=== PATIENT | female | born 1950 | race African-American/Black ===

== ENCOUNTER 2018-02-07 15:53 | Inpatient (IN) | payer MEDICARE ==
[~2018-02-07] VITALS: Ht 170.2 cm; Wt 96.7 kg
--- NOTE | ~2018-02-07 | MORECARE ---
CASE MANAGEMENT DISCHARGE SUMMARY PATIENT: RAN ADEN UNIT: [id number] ADM DATE: 02/07/18 AGE: 67 : 50 SEX: F ROOM/BED: D.2224 AUTHOR: TINO,DOC PHYSICIAN: REFERRING PHYSICIAN: PETER MCNAIR MD DATE OF SERVICE: 02/22/18 Discharge Plan Patient Name: RAN ADEN Facility: [facility]:[place] : 1950 Planned Disposition: Home Anticipated Discharge Date: Discharge Date: Expected LOS: Initial Reviewer: [email or web address] Initial Review Date: 02/19/2018 Generated: 02/22/18 3:57 pm Comments DCP- Discharge Planning Updated by [email or web address]: Erin Alonzo on 02/22/18 1:[address] CM met with patient and her daughter Yasbel Boland to discuss discharge planning. Patient and daughter states they would like her to go to [facility] in [place] for Skilled therapy. Prior to hospitalization patient was living independently with her . I called and spoke with Angela and she gave me another number to speak with Roseline Sheffield (intake) at [facility]. I left a message for Roseline to return my call and faxed clinical to [phone]. CM will continue to follow and assist with discharge planning/needs. 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 Patient is still currently on Vent but alert. Henry stated that prior to admission patient lived with her in [place]. She stated that she has been in and out of hospital lately with her liver problems. She is uncertain of disposition at this time. Denies any discharge needs currently. CM will continue to follow and assist as needed with discharge planning / needs. Drawer In Dobby Loom: Perla Finch DCP- Discharge Planning Updated by [email or web address]: Perla Finch on 02/15/18 6:[address] LATE ENTRY 02-15-18 CM HAS ATTEMPTED TO SPEAK WITH PATIENT MULTIPLE TIMES REGARDING DISCHARGE PLANNING PATIENT IS CURRENTLY ON VENT/ SEDATED. NO FAMILY AT BEDSIDE. CM WILL CONTINUE TO FOLLOW AND ASSIST NEEDED WITH DISCHRGE PLANNING /NEEDS DCPIA - Discharge Planning Initial Assessment Updated by [email or web address]: Perla Finch on 02/19/18 7:14 pm * Is the patient Alert and Oriented? Yes * How many steps to enter\exit or inside your home? * PCP DR. Garrison Salazar [place] * Pharmacy [facility] * Preadmission Environment Home with Family * ADLs Independent * Equipment None * List name and contact numbers for known caregivers / representatives who currently or will assist patient after discharge: Henry Boland -daughter- [phone] * Verbal permission to speak to the caregivers and representatives has been obtained from the patient. N/A * Community resources currently utilized None * Additional services required to return to the preadmission environment? No * Can the patient safely return to the preadmission environment? Yes * Has this patient been hospitalized within the prior 30 days at any hospital? No Last DP export: 02/22/18 1:47 Patient Name: RAN ADEN Page [id number] at 1457 All edits/amendments must be made on the electronic document DICTATION DATE: 02/22/181456 BEAN VINER: [email or web address] 02/22/181456 RPT#: [id number] DC DATE: STATUS: ADM IN [facility] [address] [place] [address] END OF REPORT
--- NOTE | ~2018-02-07 | HEMODYNAMI ---
PATIENT:RAN ADEN MEDICAL RECORD: [id number] : 50 LOCATION:[place] [address] ADMISSION DATE: 02/07/18 Generatedon:02/08/201815:49 Patient name: RAN ADEN Patient #: [id number] SSN: DO B: 1950 Date of study: 02/08/2018 Page: Of Hemodynamic Procedure Report Patient Data Patient Demographics Procedure consent was obtained First Name: RAN Gender: Female Last Name: KEIKO : 1950 Patient #: [id number] Age: 67 year(s) Race: Black Additional ID: [id number] Contact details [address]: [address] [place] [address] State: [place] City: [place] Zip code: [address] Past Medical History Allergies: No known allergies Admission Admission Data Admission Date: 02/07/2018 Admission Time: 22:19 Room #: [facility] Height (in.): 67 BSA: 1.89 (m2) Height (cm.): 170.18 BMI: 26.78 (kg/m2) Weight (lbs.): 171 Weight (kg.): 77.56 Procedure Procedure Types Cath Procedure Peripheral Cath Diagnostic Procedure Video Network Engineer Peripheral Procedures Abd/Extremity Visceral/Mesenteric Mesenteric Arteriogram (Abd Artery) Liver TIPSS Procedure Description Procedure Date Procedure Date: 02/08/2018 Procedure Start Time: 10:46 Procedure Staff Name Function Fran Rosas MD Performing Physician Rhonda Mcbride RT Occupational Physician Kylee Duran RN Nurse Paulino Cui RT Scrub Procedure Data Cath Procedure Fluoroscopy Diagnostic fluoroscopy Total fluoroscopy Time: 55 time: 55 min min Diagnostic fluoroscopy Total fluoroscopy dose: dose: 5573 mGy 5573 mGy Contrast Material Contrast Material Type Amount (ml) Isovue 300 260 Diagnostic catheters Device Type Used For End Catheter Placement Merit Impress COBRA 2 5Fr 65CM catheter ([id number]) DIAGNOSTIC MPA-2 5Fr catheter ([id number]) Merit UHF Pigtail VESSEL SIZING 5Fr 65CM catheter ([id number]) Procedure Medications Medication Administration Route Dosage Heparin Flush Bag added to field 3 bags (1000units/500ml NS) Lidocaine 1% added to field 20 Hemodynamics Rest BSA: 1.89 (m2) O2 Consumption: Estimated: 196.78 (ml/min) O2 Consumption indexed : Estimated:104.12 (ml/min/m) Heart Rate: 100 (bpm) Pressure Samples Time Site Value (mmHg) Purpose Heart Use Rate(bpm) 14:23 Portal (27) Snapshot 94 14:23 Portal (27) Snapshot 95 14:23 Portal (28) Snapshot 94 14:29 RA 15/14(13) Snapshot 95 14:51 Portal (24) Snapshot 98 14:53 RA 16/ (15) Snapshot 100 14:53 RA (15) Snapshot 104 14:54 RA (13) Snapshot 98 Snapshots Pre Cath Intra NCS Post Cath Vital Signs Time Heart Resp SPO2 etCO2 NIBP (mmHg) Rhythm Pain Sedation Rate (ipm) (%) (mmHg) Status Level (bpm) 9:59:06 99 6 100 0 103/74(92) NSR 0 (11) 10(A) , No pain 10:00:42 99 5 100 0 109/78(89) NSR 0 (11) 10(A) , No pain 10:05:37 105 0 0 129/92(109) NSR 0 (11) 10(A) , No pain 10:09:57 105 10 100 0 112/79(98) NSR 0 (11) 10(A) , No pain 10:14:13 107 56 100 0 124/79(107) NSR 0 (11) 10(A) , No pain 10:18:33 108 16 100 0 116/76(97) NSR 0 (11) 10(A) , No pain 10:19:55 108 17 100 0 113/74(95) NSR 0 (11) 10(A) , No pain 10:21:15 107 16 100 0 106/69(85) NSR 0 (11) 10(A) , No pain 10:22:31 106 15 100 0 105/72(88) NSR 0 (11) 10(A) , No pain 10:23:46 105 31 100 0 105/68(89) NSR 0 (11) 10(A) , No pain 10:25:04 105 18 100 0 104/68(83) NSR 0 (11) 10(A) , No pain 10:26:20 105 32 100 0 104/72(82) NSR 0 (11) 10(A) , No pain 10:27:36 104 29 100 0 98/68(86) NSR 0 (11) 10(A) , No pain 10:28:50 104 31 100 0 107/73(88) NSR 0 (11) 10(A) , No pain 10:30:07 104 32 100 0 104/70(80) NSR 0 (11) 10(A) , No pain 10:31:23 103 28 100 0 103/69(84) NSR 0 (11) 10(A) , No pain 10:32:37 103 12 100 0 104/73(83) NSR 0 (11) 10(A) , No pain 10:33:53 103 14 100 0 105/69(89) NSR 0 (11) 10(A) , No pain 10:35:08 102 100 0 103/72(87) NSR 0 (11) 10(A) , No pain 10:36:24 102 0 100 0 103/70(86) NSR 0 (11) 10(A) , No pain 10:37:40 102 14 100 0 107/72(92) NSR 0 (11) 10(A) , No pain 10:38:58 102 100 0 104/69(81) NSR 0 (11) 10(A) , No pain 10:40:14 101 100 0 108/73(90) NSR 0 (11) 10(A) , No pain 10:41:32 102 6 100 0 107/71(90) NSR 0 (11) 10(A) , No pain 10:42:47 102 100 0 104/72(88) NSR 0 (11) 10(A) , No pain 10:44:05 101 12 100 0 102/68(81) NSR 0 (11) 10(A) , No pain 10:45:21 101 9 100 0 98/66(81) NSR 0 (11) 10(A) , No pain 10:46:37 100 0 100 0 103/67(87) NSR 0 (11) 10(A) , No pain 10:47:52 100 10 100 0 100/68(82) NSR 0 (11) 10(A) , No pain 10:49:08 100 0 100 0 99/65(84) NSR 0 (11) 10(A) , No pain 10:50:24 100 100 0 99/67(80) NSR 0 (11) 10(A) , No pain 10:51:40 100 8 100 0 98/64(80) NSR 0 (11) 10(A) , No pain 10:52:56 100 11 100 0 99/65(81) NSR 0 (11) 10(A) , No pain 10:54:11 100 11 100 0 99/66(79) NSR 0 (11) 10(A) , No pain 10:55:27 100 11 100 0 99/66(81) NSR 0 (11) 10(A) , No pain 10:56:43 100 11 100 0 96/65(77) NSR 0 (11) 10(A) , No pain 10:57:57 100 12 100 0 101/67(85) NSR 0 () 10(A) , No pain 10:59:13 100 12 100 0 101/66(81) NSR 0 (11) 10(A) , No pain 11:00:26 99 11 100 0 101/68(79) NSR 0 (11) 10(A) , No pain 11:01:44 100 11 100 0 98/63(80) NSR 0 (11) 10(A) , No pain 11:03:00 100 11 100 0 98/66(80) NSR 0 (11) 10(A) , No pain 11:04:16 100 12 100 0 99/64(82) NSR 0 (11) 10(A) , No pain 11:05:31 100 12 100 0 99/64(75) NSR 0 (11) 10(A) , No pain 11:06:45 99 7 100 0 98/67(81) NSR 0 (11) 10(A) , No pain 11:08:01 99 11 100 0 95/64(78) NSR 0 (11) 10(A) , No pain 11:09:15 99 10 100 0 97/66(80) NSR 0 (11) 10(A) , No pain 11:10:28 99 3 100 0 98/65(80) NSR 0 (11) 10(A) , No pain 11:11:44 100 6 100 0 96/64(77) NSR 0 (11) 10(A) , No pain 11:12:58 100 100 0 99/68(78) NSR 0 (11) 10(A) , No pain 11:14:14 99 100 0 96/61(75) NSR 0 (11) 10(A) , No pain 11:15:27 99 100 0 97/66(76) NSR 0 (11) 10(A) , No pain 11:16:43 98 100 0 98/63(76) NSR 0 (11) 10(A) , No pain 11:17:59 98 100 0 97/66(80) NSR 0 (11) 10(A) , No pain 11:19:15 98 100 0 98/62(77) NSR 0 (11) 10(A) , No pain 11:20:31 100 100 0 100/64(82) NSR 0 (11) 10(A) , No pain 11:21:46 97 100 0 95/61(76) NSR 0 (11) 10(A) , No pain 11:23:00 98 100 0 98/65(79) NSR 0 (11) 10(A) , No pain 11:24:14 98 100 0 99/68(78) NSR 0 (11) 10(A) , No pain 11:25:30 98 9 100 0 97/65(77) NSR 0 (11) 10(A) , No pain 11:26:45 98 100 0 99/64(81) NSR 0 (11) 10(A) , No pain 11:28:03 98 100 0 98/62(80) NSR 0 (11) 10(A) , No pain 11:29:17 98 11 100 0 108/72(91) NSR 0 (11) 10(A) , No pain 11:30:37 98 100 0 103/65(86) NSR 0 (11) 10(A) , No pain 11:31:53 98 100 0 98/66(77) NSR 0 (11) 10(A) , No pain 11:33:06 98 100 0 97/66(82) NSR 0 (11) 10(A) , No pain 11:34:22 98 13 100 0 99/63(78) NSR 0 (11) 10(A) , No pain 11:36:21 98 0 98/65(81) NSR 0 (11) 10(A) , No pain 11:37:37 98 100 0 100/67(77) NSR 0 (11) 10(A) , No pain 11:38:52 98 24 100 0 100/65(81) NSR 0 (11) 10(A) , No pain 11:40:08 98 15 100 0 99/66(80) NSR 0 (11) 10(A) , No pain 11:41:22 98 13 100 0 105/67(83) NSR 0 (11) 10(A) , No pain 11:42:40 98 11 100 0 103/65(83) NSR 0 (11) 10(A) , No pain 11:43:58 97 12 100 0 101/63(83) NSR 0 (11) 10(A) , No pain 11:45:13 98 13 100 0 100/66(79) NSR 0 (11) 10(A) , No pain 11:46:29 97 11 100 0 102/67(84) NSR 0 (11) 10(A) , No pain 11:47:45 98 14 100 0 102/67(81) NSR 0 (11) 10(A) , No pain 11:49:01 97 12 100 0 101/67(82) NSR 0 (11) 10(A) , No pain 11:50:18 97 9 100 0 103/63(80) NSR 0 (11) 10(A) , No pain 11:51:32 96 13 100 0 106/77(87) NSR 0 (11) 10(A) , No pain 11:52:50 97 13 100 0 95/64(81) NSR 0 (11) 10(A) , No pain 11:54:04 97 13 100 0 103/67(78) NSR 0 (11) 10(A) , No pain 11:55:22 97 11 100 0 99/64(81) NSR 0 (11) 10(A) , No pain 11:56:38 97 12 100 0 101/67(81) NSR 0 (11) 10(A) , No pain 11:57:55 97 11 100 0 104/66(84) NSR 0 (11) 10(A) , No pain 11:59:11 97 14 100 0 99/66(82) NSR 0 (11) 10(A) , No pain 12:00:25 96 100 0 103/70(87) NSR 0 (11) 10(A) , No pain 12:01:41 96 14 100 0 106/69(85) NSR 0 (11) 10(A) , No pain 12:02:59 97 13 100 0 107/68(88) NSR 0 (11) 10(A) , No pain 12:04:16 97 12 100 0 102/66(82) NSR 0 (11) 10(A) , No pain 12:05:32 97 14 100 0 100/65(81) NSR 0 (11) 10(A) , No pain 12:06:48 97 15 100 0 102/67(83) NSR 0 (11) 10(A) , No pain 12:08:04 97 16 100 0 103/69(84) NSR 0 (11) 10(A) , No pain 12:09:22 97 16 100 0 106/67(79) NSR 0 (11) 10(A) , No pain 12:10:39 98 15 100 0 110/70(84) NSR 0 (11) 10(A) , No pain 12:11:57 98 100 0 106/69(85) NSR 0 (11) 10(A) , No pain 12:13:13 98 7 100 0 111/71(93) NSR 0 (11) 10(A) , No pain 12:14:31 97 100 0 112/72(90) NSR 0 (11) 10(A) , No pain 12:15:49 97 16 100 0 105/68(84) NSR 0 (11) 10(A) , No pain 12:17:06 96 15 100 0 100/63(76) NSR 0 (11) 10(A) , No pain 12:18:22 97 15 100 0 99/67(80) NSR 0 (11) 10(A) , No pain 12:19:38 97 14 100 0 102/65(85) NSR 0 (11) 10(A) , No pain 12:20:54 96 15 100 0 104/67(86) NSR 0 (11) 10(A) , No pain 12:22:12 97 15 100 0 106/66(87) NSR 0 (11) 10(A) , No pain 12:23:29 97 13 100 0 111/71(87) NSR 0 (11) 10(A) , No pain 12:24:49 97 14 100 0 111/70(96) NSR 0 (11) 10(A) , No pain 12:26:07 96 13 100 0 109/72(84) NSR 0 (11) 10(A) , No pain 12:27:25 96 13 100 0 110/71(85) NSR 0 (11) 10(A) , No pain 12:28:43 96 11 100 0 104/71(86) NSR 0 (11) 10(A) , No pain 12:29:59 96 12 100 0 107/69(89) NSR 0 (11) 10(A) , No pain 12:31:16 96 12 100 0 106/69(91) NSR 0 (11) 10(A) , No pain 12:32:32 96 100 0 108/73(90) NSR 0 (11) 10(A) , No pain 12:33:48 96 10 100 0 118/73(94) NSR 0 (11) 10(A) , No pain 12:35:08 96 16 100 0 116/70(93) NSR 0 (11) 10(A) , No pain 12:36:26 96 14 100 0 113/74(89) NSR 0 (11) 10(A) , No pain 12:37:43 96 14 100 0 111/70(91) NSR 0 (11) 10(A) , No pain 12:39:01 96 14 100 0 108/74(88) NSR 0 (11) 10(A) , No pain 12:40:21 95 14 100 0 107/68(90) NSR 0 (11) 10(A) , No pain 12:41:39 96 15 100 0 109/71(87) NSR 0 (11) 10(A) , No pain 12:42:59 96 15 100 0 114/71(91) NSR 0 (11) 10(A) , No pain 12:44:19 96 15 100 0 112/72(92) NSR 0 (11) 10(A) , No pain 12:45:37 95 13 100 0 111/71(94) NSR 0 (11) 10(A) , No pain 12:46:55 95 11 100 0 112/74(89) NSR 0 () 10(A) , No pain 12:48:12 95 11 100 0 106/70(89) NSR 0 () 10(A) , No pain 12:49:28 96 10 100 0 112/77(91) NSR 0 () 10(A) , No pain 12:50:46 96 11 100 0 113/75(92) NSR 0 () 10(A) , No pain 12:52:06 95 10 100 0 106/68(86) NSR 0 () 10(A) , No pain 12:53:24 96 12 100 0 109/70(91) NSR 0 () 10(A) , No pain 12:54:42 95 12 100 0 105/70(87) NSR 0 () 10(A) , No pain 12:55:57 95 13 100 0 109/70(91) NSR 0 () 10(A) , No pain 12:57:15 95 11 100 0 110/72(92) NSR 0 () 10(A) , No pain 12:58:31 95 11 100 0 105/69(86) NSR 0 () 10(A) , No pain 12:59:47 95 12 100 0 112/69(88) NSR 0 (11) 10(A) , No pain 13:01:04 94 12 100 0 105/66(88) NSR 0 (11) 10(A) , No pain 13:02:22 95 12 100 0 107/69(90) NSR 0 (11) 10(A) , No pain 13:03:42 95 11 100 0 106/68(87) NSR 0 (11) 10(A) , No pain 13:05:00 95 11 100 0 105/68(85) NSR 0 (11) 10(A) , No pain 13:06:18 95 11 100 0 106/68(85) NSR 0 (11) 10(A) , No pain 13:07:34 95 11 100 0 102/68(85) NSR 0 (11) 10(A) , No pain 13:08:52 95 11 100 0 101/66(79) NSR 0 (11) 10(A) , No pain 13:10:09 95 12 100 0 99/64(79) NSR 0 (11) 10(A) , No pain 13:11:25 94 13 100 0 100/64(78) NSR 0 (11) 10(A) , No pain 13:12:43 94 13 100 0 99/62(75) NSR 0 (11) 10(A) , No pain 13:13:59 94 13 100 0 103/66(80) NSR 0 (11) 10(A) , No pain 13:15:15 95 11 100 0 102/67(82) NSR 0 (11) 10(A) , No pain 13:16:32 95 11 100 0 99/63(79) NSR 0 (11) 10(A) , No pain 13:17:50 94 14 100 0 97/63(77) NSR 0 (11) 10(A) , No pain 13:19:04 94 13 100 0 102/69(86) NSR 0 (11) 10(A) , No pain 13:20:22 95 13 100 0 101/64(80) NSR 0 (11) 10(A) , No pain 13:21:36 95 12 100 0 99/67(81) NSR 0 (11) 10(A) , No pain 13:22:51 94 11 100 0 97/65(81) NSR 0 (11) 10(A) , No pain 13:24:05 94 13 100 0 100/68(85) NSR 0 (11) 10(A) , No pain 13:25:21 94 12 100 0 103/67(81) NSR 0 (11) 10(A) , No pain 13:26:39 95 13 100 0 99/65(83) NSR 0 (11) 10(A) , No pain 13:27:55 95 15 100 0 99/66(82) NSR 0 (11) 10(A) , No pain 13:29:10 95 13 100 0 104/68(87) NSR 0 (11) 10(A) , No pain 13:30:26 95 11 100 0 110/73(89) NSR 0 (11) 10(A) , No pain 13:31:46 95 11 100 0 104/61(87) NSR 0 (11) 10(A) , No pain 13:33:04 95 12 100 0 107/68(86) NSR 0 (11) 10(A) , No pain 13:34:20 94 12 100 0 101/67(84) NSR 0 (11) 10(A) , No pain 13:35:35 93 10 100 0 102/69(87) NSR 0 (11) 10(A) , No pain 13:36:51 94 14 100 0 99/62(83) NSR 0 () 10(A) , No pain 13:38:07 94 15 100 0 98/63(79) NSR 0 () 10(A) , No pain 13:39:23 95 15 100 0 102/66(81) NSR 0 () 10(A) , No pain 13:40:39 95 15 100 0 103/66(84) NSR 0 (11) 10(A) , No pain 13:41:56 97 15 100 0 100/66(81) NSR 0 (11) 10(A) , No pain 13:43:12 95 15 100 0 99/65(79) NSR 0 (11) 10(A) , No pain 13:44:36 95 14 100 0 100/66(79) NSR 0 (11) 10(A) , No pain 13:47:44 95 13 100 0 101/66(82) NSR 0 (11) 10(A) , No pain 13:50:53 95 14 100 0 101/65(83) NSR 0 (11) 10(A) , No pain 13:53:59 96 13 100 0 108/72(89) NSR 0 (11) 10(A) , No pain 13:57:08 94 15 100 0 102/67(83) NSR 0 (11) 10(A) , No pain 14:00:16 94 14 100 0 105/69(87) NSR 0 (11) 10(A) , No pain 14:03:25 95 2 100 0 111/70(87) NSR 0 (11) 10(A) , No pain 14:06:35 95 14 100 0 107/69(89) NSR 0 () 10(A) , No pain 14:09:44 93 18 100 0 103/66(85) NSR 0 (11) 10(A) , No pain 14:12:52 95 9 100 0 106/67(85) NSR 0 () 10(A) , No pain 14:16:03 94 15 100 0 101/65(83) NSR 0 () 10(A) , No pain 14:19:09 93 7 100 0 106/70(86) NSR 0 () 10(A) , No pain 14:22:17 94 12 100 0 106/69(90) NSR 0 () 10(A) , No pain 14:25:26 94 14 100 0 106/70(84) NSR 0 () 10(A) , No pain 14:28:36 94 13 100 0 102/66(87) NSR 0 () 10(A) , No pain 14:31:45 94 14 100 0 106/69(87) NSR 0 () 10(A) , No pain 14:34:53 94 13 100 0 105/68(83) NSR 0 () 10(A) , No pain 14:38:00 94 100 0 111/75(93) NSR 0 () 10(A) , No pain 14:41:08 94 3 100 0 120/78(98) NSR 0 () 10(A) , No pain 14:44:16 94 100 0 115/73(93) NSR 0 (11) 10(A) , No pain 14:47:25 96 15 100 0 129/84(108) NSR 0 (11) 10(A) , No pain 14:50:40 98 100 0 131/82(101) NSR 0 (11) 10(A) , No pain 14:53:50 102 100 0 116/79(99) NSR 0 (11) 10(A) , No pain 14:57:00 97 20 100 0 111/71(91) NSR 0 (11) 10(A) , No pain 15:00:09 96 100 0 111/75(92) NSR 0 (11) 10(A) , No pain 15:03:15 96 23 100 0 105/69(88) NSR 0 (11) 10(A) , No pain 15:06:24 96 0 100 0 107/68(86) NSR 0 (11) 10(A) , No pain 15:09:32 97 0 100 0 108/72(88) NSR 0 (11) 10(A) , No pain 15:12:43 97 13 100 0 105/68(89) NSR 0 (11) 10(A) , No pain 15:15:51 96 7 100 0 108/72(88) NSR 0 (11) 10(A) , No pain 15:19:02 97 24 100 0 107/70(88) NSR 0 (11) 10(A) , No pain 15:22:59 97 19 100 0 106/70(91) NSR 0 (11) 10(A) , No pain 15:26:10 97 4 100 0 103/65(86) NSR 0 (11) 10(A) , No pain 15:29:18 97 100 0 106/67(85) NSR 0 (11) 10(A) , No pain 15:32:27 97 100 0 104/66(86) NSR 0 (11) 10(A) , No pain 15:35:35 97 4 100 0 103/66(80) NSR 0 (11) 10(A) , No pain 15:38:45 97 100 0 97/62(78) NSR 0 (11) 10(A) , No pain 15:41:54 97 100 0 94/60(75) NSR 0 (11) 10(A) , No pain 15:45:03 96 2 100 0 88/54(66) NSR 0 (11) 10(A) , No pain 15:47:55 0 Aborted NSR 0 (11) 10(A) , No pain Medications Time Medication Route Dose Verified Delivered Reason Notes Effec tiveness by by 10:14:27 Heparin Flush added 3 Fran Peters used for Bag to bags Ralph Rosas MD procedure (1000units/500ml field NS) 10:14:49 Lidocaine 1% added 20ml Fran Peters used for to vial Ralph Rosas MD procedure field x2 Procedure Log Time Note 9:30:37 Patient Height : 67 inches 9:30:41 Patient Weight : 171 lbs 9:31:34 Use device set IR Diagnostic 9:33:05 GLIDE WIRE ANGLE 260cm ([id number]) opened to sterile field. 9:33:06 DOC .035 wire (P63438) opened to sterile field. 9:33:07 TUBING Contrast Injection High Pressure (GRG965E) opened to sterile field. 9:33:07 TUBING Contrast Injection High Pressure (ETA726B) opened to sterile field. 9:33:08 BARRAGAN 260 wire (O71386) opened to sterile field. 9:33:09 SHEATH 5FR [place] (BEN531) opened to sterile field. 9:33:10 Micropuncture VSI 4FR kit opened to sterile field. 9:33:11 Tegaderm 4 x 4 (1626W) opened to sterile field. 9:33:12 Sterile Angiographic Pack opened to sterile field. 9:33:13 Bag Decanter (2002S) opened to sterile field. 9:33:14 ACIST Manifold (30291) opened to sterile field. 9:33:15 ACIST Hand Control (25236) opened to sterile field. 9:33:18 ACIST Syringe (23589) opened to sterile field. 9:59:19 Time tracking: Regular hours (M-F 7:00 - 5:00) 9:59:25 Patient arrives emergently. 9:59:32 Patient received from ICU to IR On ventilator. Tansferred to table in Supine position. 9:59:37 Signed procedure consent form obtained from guardian. 9:59:41 ECG and BP/O2 sat monitors applied to patient. 9:59:43 Vital chart was started 9:59:46 Baseline sample Acquired. 9:59:48 Full Disclosure recording started 9:59:50 - 9:59:57 H&P Date Dictated: 02/08/2018 Emergent; H&P N/A. 10:00:10 Family in waiting room. 10:00:13 Patient NPO since Midnight. 10:00:23 Patient allergic to No known allergies 10:00:27 Is the patient allergic to Iodine/contrast media? No. 10::33 - 10:00:33 ----Pre-sedation anethsthesia assessment.----information on chart for pre sedation answers, see anesthesia notes for monitoring of patient during procedure 10:02:04 IV patent on arrival in right hand with D5/.45%NaCl at KVO. 10:02:11 Right groin area was prepped with chlora-prep and draped in sterile fashion 10:02:19 Right neck area was prepped with chlora-prep and draped in sterile fashion 10::27 Right abdomen area was prepped with chlora-prep and draped in sterile fashion 10::29 - 10:14:27 Heparin Flush Bag (1000units/500ml NS) 3 bags added to field was administered by Fran Rosas MD; used for procedure; 10:14:49 Lidocaine 1% 20ml vial x2 added to field was administered by Fran Rosas MD; used for procedure; 10:23:50 KIT, TRANSJUGULAR LIVER ACCESS R opened to sterile field. 10:39:28 A [place] COBRA 2 5Fr 65CM catheter ([id number]) was advanced over the wire and used for . 10:39:32 Physician arrived 10:44:16 --------ALL STOP TIME OUT------ 10:44:17 Final Timeout: patient, procedure, and site verified with staff and physician. All members of the team are in agreement. 10:45:21 Procedure started. 10:46:09 Local anesthetic to right femoral artery with Lidocaine 1% by Fran Rosas MD.INITIAL ACCESS ONLY 10:52:12 GLIDE WIRE ANGLE 180cm ([id number]) opened to sterile field. 10:52:56 TORQUE DEVICE PLASTIC .038 ( TD01) opened to sterile field. 10:58:06 pt sedated on vent with anesthesia monitoring. natalia guillermo crna 11:03:19 Arterial access obtained using ultrasound guidance. 11:16:16 STOPCOCK 3-Way Large Bore (N17502) opened to sterile field. 11:16:17 Micropuncture VSI 4FR kit opened to sterile field. 11:16:27 Venous access obtained using ultrasound guidance. 11:18:16 GLIDE CATHETER 5FR ANGLED 65cm (CG507) opened to sterile field. 11:18:17 SHEATH 6FR [place] (HHX666) opened to sterile field. 11:23:36 Tuan 5Fr OTW embolectomy catheter opened to sterile field. 11:23:36 AMPLATZ Super stiff 180cm wire ([id number]) opened to sterile field. 11:28:38 STOPCOCK 1-Way Male Rotating (V78866) opened to sterile field. 11:33:35 [facility] [place] 10FR 23CM sheath opened to sterile field. 11:42:49 AMPLATZ Super stiff 3mm J 260cm wire ([id number]) opened to sterile field. 11:52:59 GLIDE WIRE Angled Super Stiff 180cm (YA3226) opened to sterile field. 11:59:44 AMPLATZ Super stiff 3mm J 260cm wire ([id number]) opened to sterile field. 12:13:00 KIT, TRANSJUGULAR LIVER ACCESS R opened to sterile field. 13:01:40 KIT, TRANSJUGULAR LIVER ACCESS R opened to sterile field. 13:18:56 GLIDE CATHETER 5FR COBRA 65cm (CG502) opened to sterile field. 13:27:29 AMPLATZ Super stiff 3mm J 260cm wire ([id number]) opened to sterile field. 13:35:38 A DIAGNOSTIC MPA-2 5Fr catheter ([id number]) was advanced over the wire an d used for . 13:38:15 [place] 260 wire (O05021) opened to sterile field. 13:44:53 KIT, TRANSJUGULAR LIVER ACCESS R opened to sterile field. 14:00:17 INFLATOR BasixTOUCH (ZH2976) opened to sterile field. 14:02:47 CXI Catheter 90cm (V57977) opened to sterile field. 14:05:31 A [facility] Pigtail VESSEL SIZING 5Fr 65CM catheter ([id number]) was advanced over the wire and used for . 14:09:16 Inflate balloon Inflation number: 1 A [place] 4 x 6 x 135 Balloon ([id number]) was prepped and advanced across the Undefined1, then inflated. 14:13:44 AMPLATZ Short Taper 260cm wire ([id number]) opened to sterile field. 14:16:36 Inflate balloon Inflation number: 2 A [place] 3 x 8 x 135 Balloon ([id number]) was prepped and advanced across the Undefined1, then inflated. 14:23:19 Zero performed for pressure channel P1 14:25:06 AMPLATZ Super stiff Straight 260cm wire ([id number]) opened to sterile field. 14:29:13 Zero performed for pressure channel P1 14:36:30 Inflate balloon Inflation number: 3 A [place] 6 x 4 x 135 Balloon ([id number]) was prepped and advanced across the Undefined1, then inflated. 14:40:53 VIATORR 10x8 stent ([id number]) was deployed across Undefined1 . 14:45:18 Inflate balloon Inflation number: 4 A [place] 8 x 6 x 135 Balloon ([id number]) was prepped and advanced across the Undefined1, then inflated. 14:51:07 Zero performed for pressure channel P1 14:53:25 Zero performed for pressure channel P1 15:17:29 SUTURE ETHILON 2-0 BLK MONO FS opened to sterile field. 15:17:39 SUTURE L27IN 2-0 MCRYL HOLLI MO opened to sterile field. 15:23:57 Tegaderm 6 x 8 (1628) opened to sterile field. 15:23:58 Tegaderm 6 x 8 (1628) opened to sterile field. 15:24:38 a trialysis cath was placed when sheath removed from ij. 15:30:37 Procedure ended.(Physican Out) 15:30:49 Fluoroscopy time 55.00 minutes. 15:31:00 Fluoroscopy dose: 5573 mGy 15:31:00 Flurop Dose total: 5573 15:31:48 Contrast amount:Isovue 300 260ml. 15:38:45 Procedure and supply charges have been captured, reviewed, submitted an d are correct. 15:47:56 Report given to ICU. 15:49:06 Vital chart was stopped Intervention Summary Intervention Notes Time ActionType Lesion and Equipment Used Action# Pressure Duration Attributes 14:09:16 Inflate Undefined1 Evercross 4 x 6 1 0 00:00 balloon x 135 Balloon ([id number]) 14:16:36 Inflate Undefined1 Evercross 3 x 8 2 0 00:00 balloon x 135 Balloon ([id number]) 14:36:30 Inflate Undefined1 [place]cross 6 x 4 3 0 00:00 balloon x 135 Balloon ([id number]) 14:40:53 Deploy self Undefined1 VIATORR 10x8 1 expanding stent stent ([id number]) 14:45:18 Inflate Undefined1 [place]cross 8 x 6 4 0 00:00 balloon x 135 Balloon ([id number]) Device Usage Item Name Manufacture Quantity Catalog Number Hospital Part Current M inimal Lot# / Charge Number Stock Stock Serial# Code HELEN WIRE Terumo 1 [id number] 827211 657975 122384 5 ANGLE 260cm (WL4949) DOC .035 wire [employer] 1 R22648 059588 668764 5 (D02027) TUBING Contrast Merit 2 [id number] 453524 007513 440222 5 Injection High Medical Pressure ([id number]) [place] 260 wire [employer] 1 W54382 102819 47954 592704 5 2104755 (S16526) SHEATH 5FR Terumo 1 IGG057 651138 202919 416183 4 0 [place] (KOK618) Micropuncture VSI VASCULAR 2 7266V 949611 639719 5 VSI 4FR kit SOLUTIONS Tegaderm 4 x 4 3M 1 1626W 379197 343500 236501 5 (1626W) Sterile Cardinal 1 [id number] 458380 039723 5 Angiographic Health Pack Bag Decanter Microtek 1 2002S 470761 52885 011441 5 (2001S) Medical Inc. ACIST Manifold Acist 1 56083 376019 919085 995499 5 (88741) [employer] ACIST Hand Acist 1 24769 286557 498533 147728 5 Control (84630) [employer] ACIST Syringe Acist 1 59168 950666 347098 858965 2 0 (93340) [employer] KIT, [employer] 2 O85145 456555 177127 5 [id number] TRANSJUGULAR 8276739 LIVER ACCESS R Merit Impress Merit 1 [id number] 943602 385874 349862 5 COBRA 2 5Fr Medical 65CM catheter ([id number]) GLIDE WIRE Terumo 1 XN0381 419156 883034 417879 5 ANGLE 180cm (XG3394) TORQUE DEVICE [place] 1 TD01 622459 709962 495452 5 PLASTIC .038 ( Scientific TD01) STOPCOCK 3-Way [employer] 1 Y98199 945613 3946 154993 5 1686996 Large Bore (J42433) GLIDE CATHETER Terumo 1 CG507 187425 556590 5 5FR ANGLED 65cm (CG507) SHEATH 6FR Terumo 1 YKP962 983589 431529 775876 4 0 [place] (GWW190) Tuan 5Fr OTW [place] 1 [id number] 742727 239150 336147 5 embolectomy [employer] catheter AMPLATZ Super [place] 1 [id number] 542837 894880 796596 5 stiff 180cm Scientific wire ([id number]) STOPCOCK 1-Way [employer] 1 R50848 050154 42800 849069 5 8592755 Male Rotating (Q18911) [facility] 10FR [employer] 1 230489 511453 268336 5 23CM sheath AMPLATZ Super [place] 1 [id number] 433047 692144 5 stiff 3mm J Scientific 260cm wire ([id number]) GLIDE WIRE Terumo 1 HP8539 416751 609726 5 Angled Super Stiff 180cm (QE1849) GLIDE CATHETER Terumo 1 CG502 [id number] [id number] 5 5FR COBRA 65cm ([id number]) DIAGNOSTIC Cardinal 1 [id number] 328604 652603 811242 5 MPA-2 5Fr Health catheter ([id number]) BENTSON 260 [employer] 1 [id number] 273338 396539 920212 5 wire ([id number]) CXI Catheter [employer] 1 [id number] 650674 558573 070792 5 [id number] 90cm ([id number]) Merit UHF Merit 1 [id number] 828497 148072 5 Pigtail VESSEL Medical SIZING 5Fr 65CM catheter ([id number]) Evercross 4 x 6 Medtronic 1 [id number] 193616 994759 471044 5 [id number] x 135 Balloon ([id number]) AMPLATZ Short [place] 1 [id number] 730630 465517 463562 5 Taper 260cm Scientific wire ([id number]) Evercross 3 x 8 Medtronic 1 [id number] 409204 184095 879118 5 [id number] x 135 Balloon ([id number]) AMPLATZ Super [place] 1 [id number] 652537 61463 157973 5 stiff Straight Scientific 260cm wire ([id number]) Evercross 6 x 4 Medtronic 1 [id number] 209116 074313 627939 5 [id number] x 135 Balloon ([id number]) INFLATOR Merit 1 [id number] 911658 480531 228611 5 [employer] Medical ([id number]) VIATORR 10x8 [place] 1 [id number] 324613 260225 206571 5 [id number] stent ([id number]) Evercross 8 x 6 Medtronic 1 [id number] 753473 276203 164363 5 [id number] x 135 Balloon ([id number]) SUTURE ETHILON Ethicon 1 [id number] 413305 776819 5 2-0 BLK MONO FS SUTURE L27IN Ethicon 1 [id number] 992660 029594 5 2-0 MCRYL HOLLI MO Tegaderm 6 x 8 3M 2 1628 318688 582510 5 (1628) Signature Audit [place] Time Signature Unsigned Intra-Procedure 02/08/2018 Rhonda Mcbride RT(R) 3:49:02 PM [facility] [address] [place] [address]
--- NOTE | ~2018-02-07 | EC ---
PATIENT:RAN ADEN DATE OF SERVICE: 02/07/18 SEX: F MEDICAL RECORD: [id number] DATE OF : 50 LOCATION:[place] [address] AGE OF PATIENT: 67 ADMISSION DATE: 02/07/18 REFERRING PHYSICIAN: INTERPRETING PHYSICIAN: LAUREN HELLER MD ECHOCARDIOGRAM REPORT ECHO CHARGES 4 ECHO COMPLETE Date: 02/09/18 CLINICAL DIAGNOSIS: LV FUN, HISTORY OF PVD,RENAL ECHOCARDIOGRAPHIC MEASUREMENTS (adult normal given) AC root (d.<3.7cm) 3.4 cm LV Septum d (<1.2 cm> 1.2 cm Valve Excursion 2.0 cm LV Septum (systole) 1.6 cm Left Atria (s.<4.0cm> 4.0 cm LVPW d(<1.2cm) 1.6 cm RV (d.<2.3cm) 4.7 cm LVPW (sytole) 1.8 cm LV diastole(<5.6CM) 5.3 cm MV E-F(>70mm/sec) cm LV systole 3.3 cm LVOT Diameter 1.9 cm MV exc.(>10mm) 1.2 cm Est.ejection fraction (50-75%) % DOPPLER: LVIT cm/sec A 110 cm/sec E 75.0 cm/sec LA cm/sec RVSP 59 mmHg LVOT 103 cm/sec AOP1/2T m/s Asc. Ao 166 cm/sec RVOT 84 cm/sec RA cm/sec PA 111 cm/sec AV Gradient Peak 11.08mmHg AV Mean 5.77 mmHg AV Area 1.7 cm MV Gradient Peak 9.76 mmHg MV Mean 3.86 mmHg MV Area cm COMMENTS: Teachers Assistant: Bobbi SCHOFIELD Training And Development Head: 3 Dr. Brar TAPE# PACS Pericardial Effusion N DATE OF SERVICE: 02/10/2018 Adequate 2-D echo, color flow and spectral Doppler, and M-mode. LVH is present. LV internal dimension is normal. Wall motion is normal. EF is greater than or equal to 55%. Aortic valve is tricuspid. There is no evidence of stenosis by Doppler interrogation. Left atrium is normal at 4.0 cm. Mitral valve shows no prolapse. Mild MR. Right-sided chambers appear grossly normal. Moderate TR. Estimated RV systolic pressure is greater than or equal to 59 mmHg via the continuity equation. ECHOCARDIOGRAM REPORT [id number] RAN ADEN TRANSINT:[id number] Voice Confirmation ID: [id number] DOCUMENT ID: [id number] LAUREN HELLER MD at 1150 CC: [id number] DICTATION DATE: 02/10/18945 COSMETICS MACHINE OPERATOR: 02/10/18 1235 ADM IN [place] [id number] [place] [address]
--- NOTE | ~2018-02-07 | MORECARE ---
CASE MANAGEMENT DISCHARGE SUMMARY PATIENT: RAN ADEN UNIT: [id number] ADM DATE: 02/07/18 AGE: 67 : 50 SEX: F ROOM/BED: D.2224 AUTHOR: TINO,DOC PHYSICIAN: REFERRING PHYSICIAN: PETER MCNAIR MD DATE OF SERVICE: 02/22/18 Discharge Plan Patient Name: RAN ADEN Facility: [facility]:[place] : 1950 Planned Disposition: Home Anticipated Discharge Date: Discharge Date: Expected LOS: Initial Reviewer: [email or web address] Initial Review Date: 02/19/2018 Generated: 02/22/18 3:47 pm Comments DCP- Discharge Planning Updated by [email or web address]: Perla Finch on 02/19/18 6:[address] Late Entry 02/19/18 @ 1420 Patient Name: RAN ADEN Admission Status: Urgent Accout number: [id number] Admission Date: 02-07-2018 : 1950 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 Patient is still currently on Vent but alert. Henry stated that prior to admission patient lived with her in [place]. She stated that she has been in and out of hospital lately with her liver problems. She is uncertain of disposition at this time. Denies any discharge needs currently. CM will continue to follow and assist as needed with discharge planning / needs. Homicide Detective: Perla Finch DCP- Discharge Planning Updated by [email or web address]: Perla Finch on 02/15/18 6:[address] LATE ENTRY 02-15-18 CM HAS ATTEMPTED TO SPEAK WITH PATIENT MULTIPLE TIMES REGARDING DISCHARGE PLANNING PATIENT IS CURRENTLY ON VENT/ SEDATED. NO FAMILY AT BEDSIDE. CM WILL CONTINUE TO FOLLOW AND ASSIST NEEDED WITH DISCHRGE PLANNING /NEEDS DCPIA - Discharge Planning Initial Assessment Updated by [email or web address]: Perla Finch on 02/19/18 7:14 pm * Is the patient Alert and Oriented? Yes * How many steps to enter\exit or inside your home? * PCP DR. Garrison Maldonado * Pharmacy [facility] miguelina Maldonado * Preadmission Environment Home with Family * ADLs Independent * Equipment None * List name and contact numbers for known caregivers / representatives who currently or will assist patient after discharge: Henry Boland -daughter- [phone] * Verbal permission to speak to the caregivers and representatives has been obtained from the patient. N/A * Community resources currently utilized None * Additional services required to return to the preadmission environment? No * Can the patient safely return to the preadmission environment? Yes * Has this patient been hospitalized within the prior 30 days at any hospital? No External Providers External Provider: [facility] Next Contact Date: Service Request Date: Service Type: Resolution: Reviewer: Comments: Last DP export: 02/19/18 6:24 Patient Name: RAN ADEN Page 93889 at 1447 All edits/amendments must be made on the electronic document DICTATION DATE: 02/22/18 1446 FILTRATION SUPERVISOR: JAYME 02/22/18 1446 RPT#: [id number] DC DATE: STATUS: ADM IN [facility] [address] [place] [address] END OF REPORT
--- NOTE | ~2018-02-07 | MORECARE ---
CASE MANAGEMENT DISCHARGE SUMMARY PATIENT: RAN ADEN UNIT: [id number] ADM DATE: 02/07/18 AGE: 67 : 50 SEX: F ROOM/BED: D.2224 AUTHOR: TINO,DOC PHYSICIAN: REFERRING PHYSICIAN: PETER MCNAIR MD DATE OF SERVICE: 02/25/18 Discharge Plan Patient Name: RAN ADEN Facility: [facility]:[place] : 1950 Planned Disposition: Home Anticipated Discharge Date: Discharge Date: 02/24/2018 Expected LOS: 0 Initial Reviewer: [email or web address] Initial Review Date: 02/19/2018 Generated: 02/25/18 11:12 am DCP- Discharge Planning Updated by [email or web address]: Erin Alonzo on 02/22/18 1:[address] CM met with patient and her daughter Ysabel Boland to discuss discharge planning. Patient and daughter states they would like her to go to [facility] in [place] for Skilled therapy. Prior to hospitalization patient was living independently with her . I called and spoke with Angela and she gave me another number to speak with Roseline Sheffield (intake) at [facility]. I left a message for Roseline to return my call and faxed clinical to [phone]. CM will continue to follow and assist with discharge planning/needs. 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 Patient is still currently on Vent but alert. Henry stated that prior to admission patient lived with her in [place]. She stated that she has been in and out of hospital lately with her liver problems. She is uncertain of disposition at this time. Denies any discharge needs currently. CM will continue to follow and assist as needed with discharge planning / needs. Frit Mixer And Burner: Perla Finch DCP- Discharge Planning Updated by [email or web address]: Perla Finch on 02/15/18 6:[address] LATE ENTRY 02-15-18 CM HAS ATTEMPTED TO SPEAK WITH PATIENT MULTIPLE TIMES REGARDING DISCHARGE PLANNING PATIENT IS CURRENTLY ON VENT/ SEDATED. NO FAMILY AT BEDSIDE. CM WILL CONTINUE TO FOLLOW AND ASSIST NEEDED WITH DISCHRGE PLANNING /NEEDS DCPIA - Discharge Planning Initial Assessment Updated by [email or web address]: Perlavaleri Finch on 02/19/18 7:14 pm * Is the patient Alert and Oriented? Yes * How many steps to enter\exit or inside your home? * PCP DR. Garrison Salazar [place] * Pharmacy [facility] * Preadmission Environment Home with Family * ADLs Independent * Equipment None * List name and contact numbers for known caregivers / representatives who currently or will assist patient after discharge: Henry Boland -daughter- [phone] * Verbal permission to speak to the caregivers and representatives has been obtained from the patient. N/A * Community resources currently utilized None * Additional services required to return to the preadmission environment? No * Can the patient safely return to the preadmission environment? Yes * Has this patient been hospitalized within the prior 30 days at any hospital? No Last DP export: 02/22/18 1:57 Patient Name: RAN ADEN Page 86197 at 1012 All edits/amendments must be made on the electronic document DICTATION DATE: 02/25/18 1012 EXTRUSION OPERATOR: JAYME 02/25/18 1012 RPT#: [id number] DC DATE:02/24/18 STATUS: DIS IN [facility] [address] [place] [address] END OF REPORT
--- NOTE | ~2018-02-07 | MORECARE ---
CASE MANAGEMENT DISCHARGE SUMMARY PATIENT: RAN ADEN UNIT: [id number] ADM DATE: 02/07/18 AGE: 67 : 50 SEX: F ROOM/BED: D.2306 AUTHOR: JADE JIMÉNEZ PHYSICIAN: REFERRING PHYSICIAN: PETER MCNAIR MD DATE OF SERVICE: 02/15/18 Discharge Plan Patient Name: RAN ADEN [facility] [facility] 1950 Planned Disposition: Anticipated Discharge Date: Discharge Date: Expected LOS: Initial Reviewer: [email or web address] Initial Review Date: 02/07/2018 Generated: 02/15/18 8:26 pm Comments DCP- Discharge Planning Updated by [email or web address]: Perla Finch on 02/15/18 6:[address] LATE ENTRY 02-15-18 CM HAS ATTEMPTED TO SPEAK WITH PATIENT MULTIPLE TIMES REGARDING DISCHARGE PLANNING PATIENT IS CURRENTLY ON VENT/ SEDATED. NO FAMILY AT BEDSIDE. CM WILL CONTINUE TO FOLLOW AND ASSIST NEEDED WITH DISCHRGE PLANNING /NEEDS Patient Name: RAN ADEN Page 04317 at 1926 All edits/amendments must be made on the electronic document DICTATION DATE: 02/15/181924 REGIONAL ACCOUNT MANAGER: JAYME 02/15/181924 RPT#: [id number] DC DATE: STATUS: ADM IN [facility] [address] [place] [address] END OF REPORT
--- NOTE | ~2018-02-07 | MORECARE ---
CASE MANAGEMENT DISCHARGE SUMMARY PATIENT: RAN ADEN UNIT: [id number] ADM DATE: 02/07/18 AGE: 67 : 50 SEX: F ROOM/BED: D.2306 AUTHOR: TINO,DOC PHYSICIAN: REFERRING PHYSICIAN: PETER MCNAIR MD DATE OF SERVICE: 02/19/18 Discharge Plan Patient Name: RAN ADEN Facility: [facility]:[place] : 1950 Planned Disposition: Home Anticipated Discharge Date: Discharge Date: Expected LOS: Initial Reviewer: [email or web address] Initial Review Date: 02/19/2018 Generated: 02/19/18 8:24 pm Comments DCP- Discharge Planning Updated by [email or web address]: Perla Finch on 02/19/18 6:[address] Late Entry 02/19/18 @ 1420 Patient Name: RAN ADEN Admission Status: Urgent Accout number: [id number] Admission Date: 02-07-2018 : 1950 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 Patient is still currently on Vent but alert. Henry stated that prior to admission patient lived with her in [place]. She stated that she has been in and out of hospital lately with her liver problems. She is uncertain of disposition at this time. Denies any discharge needs currently. CM will continue to follow and assist as needed with discharge planning / needs. Surfboard Maker: Perla Finch DCP- Discharge Planning Updated by [email or web address]: Perla Finch on 02/15/18 6:[address] LATE ENTRY 02-15-18 CM HAS ATTEMPTED TO SPEAK WITH PATIENT MULTIPLE TIMES REGARDING DISCHARGE PLANNING PATIENT IS CURRENTLY ON VENT/ SEDATED. NO FAMILY AT BEDSIDE. CM WILL CONTINUE TO FOLLOW AND ASSIST NEEDED WITH DISCHRGE PLANNING /NEEDS DCPIA - Discharge Planning Initial Assessment Updated by [email or web address]: Perla Finch on 02/19/18 7:14 pm * Is the patient Alert and Oriented? Yes * How many steps to enter\exit or inside your home? * PCP DR. Garrison Maldonado * Pharmacy [facility] miguelina Maldonado * Preadmission Environment Home with Family * ADLs Independent * Equipment None * List name and contact numbers for known caregivers / representatives who currently or will assist patient after discharge: Henry Boland -daughter- [phone] * Verbal permission to speak to the caregivers and representatives has been obtained from the patient. N/A * Community resources currently utilized None * Additional services required to return to the preadmission environment? No * Can the patient safely return to the preadmission environment? Yes * Has this patient been hospitalized within the prior 30 days at any hospital? No Last DP export: 02/19/18 6:18 Patient Name: RAN ADEN Page 92211 at 1924 All edits/amendments must be made on the electronic document DICTATION DATE: 02/19/181923 MEDICAL EXAMINER: JAYME 02/19/181923 RPT#: [id number] DC DATE: STATUS: ADM IN [facility] [address] [place] [address] END OF REPORT
--- NOTE | ~2018-02-07 | MORECARE ---
CASE MANAGEMENT DISCHARGE SUMMARY PATIENT: RAN ADEN UNIT: [id number] ADM DATE: 02/07/18 AGE: 67 : 50 SEX: F ROOM/BED: D.2306 AUTHOR: JADE JIMÉNEZ PHYSICIAN: REFERRING PHYSICIAN: PETER MCNAIR MD DATE OF SERVICE: 02/19/18 Discharge Plan Patient Name: RAN ADEN Facility: [facility]:[place] : 1950 Planned Disposition: Home Anticipated Discharge Date: Discharge Date: Expected LOS: Initial Reviewer: [email or web address] Initial Review Date: 02/19/2018 Generated: 02/19/18 8:17 pm Comments DCP- Discharge Planning Updated by [email or web address]: Perla Finch on 02/15/18 6:[address] LATE ENTRY 02-15-18 CM HAS ATTEMPTED TO SPEAK WITH PATIENT MULTIPLE TIMES REGARDING DISCHARGE PLANNING PATIENT IS CURRENTLY ON VENT/ SEDATED. NO FAMILY AT BEDSIDE. CM WILL CONTINUE TO FOLLOW AND ASSIST NEEDED WITH DISCHRGE PLANNING /NEEDS DCPIA - Discharge Planning Initial Assessment Updated by [email or web address]: Perla Finch on 02/19/18 7:14 pm * Is the patient Alert and Oriented? Yes * How many steps to enter\exit or inside your home? * PCP DR. Garrison Maldonado * Pharmacy [facility] * Preadmission Environment Home with Family * ADLs Independent * Equipment None * List name and contact numbers for known caregivers / representatives who currently or will assist patient after discharge: Henry Boland -[facility]- [phone] * Verbal permission to speak to the caregivers and representatives has been obtained from the patient. N/A * Community resources currently utilized None * Additional services required to return to the preadmission environment? No * Can the patient safely return to the preadmission environment? Yes * Has this patient been hospitalized within the prior 30 days at any hospital? No Last DP export: 02/15/18 6:26 Patient Name: RAN ADEN Page 16281 at 1918 All edits/amendments must be made on the electronic document DICTATION DATE: 02/19/181916 MANAGER EMPLOYEE BENEFITS: DM 02/19/181916 RPT#: [id number] DC DATE: STATUS: ADM IN [facility] [address] [place] [address] END OF REPORT
[2018-02-07 22:00] VITALS: BP 138/95
[2018-02-07] MEDS ORDERED: ALDACTONE25 MG PO (22:25)
[2018-02-07] MEDS ORDERED: NEURONTIN 400400 MG PO (22:25)
[2018-02-07] MEDS ORDERED: GLUCOPHAGE1000 MG PO (22:26)
[2018-02-07 23:00] VITALS: BP 131/90; BP 138/95; BMI 26.8
[2018-02-07 23:09] LABS: BASOPHILS 0.3 % (0-2); EOSINOPHILS 0.9 % (0-7); HEMATOCRIT 27.3 % (36.0-48.0); HEMOGLOBIN 9.2 g/dL (12-16); IMMATURE GRANULOCYTES 0.6 % (0-5); LYMPHOCYTES 26.7 % (15-50); MCH 31.2 pg (26.0-34.0); MCHC 33.7 g/dL (31.0-37.0); MCV 92.5 fL (80.0-100.0); MEAN PLATELET VOLUME 10.7 fL (7.4-10.4); NEUTROPHILS 61.5 % (40-80); PLATELET COUNT 74 10x3/uL (130-400); RBC 2.95 10x6/uL (4.00-5.40); RDW 19.8 % (11.5-14.5); WBC 6.8 10x3/uL (4.8-10.8)
[2018-02-07 23:26] LABS: ALBUMIN 1.6 g/dL (3.4-5.0); ALKALINE PHOSPHATASE 75 U/L (46-116); ALT (SGPT) 9 U/L (10-68); BILIRUBIN - TOTAL 1.93 mg/dL (0.2-1.3); CALC OSMOLALITY 268 mosm/kg (275-300); CALCIUM 7.7 mg/dL (8.5-10.1); CARBON DIOXIDE 22.2 mmol/L (21.0-32.0); CHLORIDE - SERUM 101 mmol/L (98-107); CREATININE - SERUM 0.8 mg/dL (0.6-1.3); GLUCOSE 135 mg/dL (74-106); POTASSIUM - SERUM 3.7 mmol/L (3.5-5.1); PROTEIN - SERUM 6.5 g/dL (6.4-8.2); SODIUM 133 mmol/L (136-145); UREA NITROGEN 14 mg/dL (7-18); eGFR NON AFRICAN AMERICAN 76 mL/min (90-120)
[2018-02-08] VITALS (28 sets, daily range): BP systolic 94–150; BP diastolic 64–93; BMI 26.8
[2018-02-08 02:52] LABS: HEMATOCRIT 16.5 % (36.0-48.0); HEMOGLOBIN 5.5 g/dL (12-16)
[2018-02-08 05:01] LABS: BASOPHILS 0.1 % (0-2); EOSINOPHILS 0.4 % (0-7); HEMATOCRIT 31.4 % (36.0-48.0); HEMOGLOBIN 10.6 g/dL (12-16); IMMATURE GRANULOCYTES 0.4 % (0-5); MCH 29.9 pg (26.0-34.0); MCHC 33.8 g/dL (31.0-37.0); MCV 88.7 fL (80.0-100.0); MEAN PLATELET VOLUME 9.7 fL (7.4-10.4); MONOCYTES 11.8 % (2-11); NEUTROPHILS 68.3 % (40-80); PLATELET COUNT 64 10x3/uL (130-400); RBC 3.54 10x6/uL (4.00-5.40); RDW 20.1 % (11.5-14.5); WBC 8.2 10x3/uL (4.8-10.8)
[2018-02-08 05:27] LABS: APTT 33.4 SECONDS (22.8-39.4); INR 1.4 (0.85-1.17); PROTIME 16.7 SECONDS (11.6-15.0)
[2018-02-08 08:44] LABS: BASOPHILS 0.2 % (0-2); EOSINOPHILS 0.3 % (0-7); HEMATOCRIT 29.6 % (36.0-48.0); HEMOGLOBIN 10.1 g/dL (12-16); IMMATURE GRANULOCYTES 0.5 % (0-5); LYMPHOCYTES 15.7 % (15-50); MCH 29.7 pg (26.0-34.0); MCHC 34.1 g/dL (31.0-37.0); MCV 87.1 fL (80.0-100.0); MONOCYTES 11.3 % (2-11); RDW 18.2 % (11.5-14.5); WBC 6.6 10x3/uL (4.8-10.8)
[2018-02-08 08:45] LABS: PLATELET COUNT 80 10x3/uL (130-400)
[2018-02-08 08:47] LABS: INR 1.48 (0.85-1.17); PROTIME 17.5 SECONDS (11.6-15.0)
[2018-02-08 15:11] LABS: HEMATOCRIT 23.9 % (36.0-48.0); HEMOGLOBIN 8.2 g/dL (12-16)
[2018-02-08 18:14] LABS: HEMATOCRIT 28.4 % (36.0-48.0); HEMOGLOBIN 9.7 g/dL (12-16)
[2018-02-08 21:49] LABS: HEMATOCRIT 30.8 % (36.0-48.0); HEMOGLOBIN 10.8 g/dL (12-16)
[2018-02-09] VITALS (22 sets, daily range): BP systolic 81–123; BP diastolic 54–84
[2018-02-09 01:02] LABS: HEMATOCRIT 30.8 % (36.0-48.0); HEMOGLOBIN 10.7 g/dL (12-16)
[2018-02-09 06:27] LABS: BASOPHILS 0.2 % (0-2); HEMATOCRIT 32.6 % (36.0-48.0); HEMOGLOBIN 11.2 g/dL (12-16); IMMATURE GRANULOCYTES 0.4 % (0-5); LYMPHOCYTES 16.7 % (15-50); MCH 29.9 pg (26.0-34.0); MCHC 34.4 g/dL (31.0-37.0); MCV 87.2 fL (80.0-100.0); MONOCYTES 9.2 % (2-11); NEUTROPHILS 71.5 % (40-80); PLATELET COUNT 84 10x3/uL (130-400); RBC 3.74 10x6/uL (4.00-5.40); RDW 18.1 % (11.5-14.5)
[2018-02-09 06:28] LABS: WBC 4.5 10x3/uL (4.8-10.8)
[2018-02-09 06:41] LABS: INR 1.67 (0.85-1.17); PROTIME 19.1 SECONDS (11.6-15.0)
[2018-02-09 06:42] LABS: ALBUMIN 1.6 g/dL (3.4-5.0); ALKALINE PHOSPHATASE 50 U/L (46-116); BILIRUBIN - TOTAL 1.86 mg/dL (0.2-1.3); CALCIUM 7.6 mg/dL (8.5-10.1); CARBON DIOXIDE 24.3 mmol/L (21.0-32.0); CHLORIDE - SERUM 105 mmol/L (98-107); GLUCOSE 112 mg/dL (74-106); PROTEIN - SERUM 5.3 g/dL (6.4-8.2); SODIUM 138 mmol/L (136-145)
[2018-02-09 06:54] LABS: ALT (SGPT) 28 U/L (10-68); CALC OSMOLALITY 275 mosm/kg (275-300); CREATININE - SERUM 0.5 mg/dL (0.6-1.3); POTASSIUM - SERUM 3.1 mmol/L (3.5-5.1); UREA NITROGEN 9 mg/dL (7-18); eGFR NON AFRICAN AMERICAN > 90 mL/min (90-120)
[2018-02-09 07:10] LABS: HEMATOCRIT 31.9 % (36.0-48.0); HEMOGLOBIN 11.2 g/dL (12-16)
[2018-02-09 11:00] LABS: HEMATOCRIT 32.2 % (36.0-48.0); HEMOGLOBIN 11.1 g/dL (12-16)
[2018-02-09 12:03] LABS: HEMATOCRIT 32.2 % (36.0-48.0); HEMOGLOBIN 11.1 g/dL (12-16)
[2018-02-09 16:04] LABS: HEMATOCRIT 33.1 % (36.0-48.0); HEMOGLOBIN 11.6 g/dL (12-16)
[2018-02-09 18:42] LABS: HEMOGLOBIN 11.6 g/dL (12-16)
[2018-02-10] VITALS (15 sets, daily range): BP systolic 78–107; BP diastolic 50–67
[2018-02-10 04:37] LABS: BASOPHILS 0.4 % (0-2); EOSINOPHILS 1.1 % (0-7); HEMOGLOBIN 11.4 g/dL (12-16); IMMATURE GRANULOCYTES 0.2 % (0-5); LYMPHOCYTES 14.5 % (15-50); MCH 30.6 pg (26.0-34.0); MCHC 34.5 g/dL (31.0-37.0); MCV 88.7 fL (80.0-100.0); MEAN PLATELET VOLUME 9.6 fL (7.4-10.4); MONOCYTES 8.3 % (2-11); NEUTROPHILS 75.5 % (40-80); PLATELET COUNT 76 10x3/uL (130-400); RBC 3.72 10x6/uL (4.00-5.40); RDW 18.3 % (11.5-14.5); WBC 5.3 10x3/uL (4.8-10.8)
[2018-02-10 04:51] LABS: HELICOBACTER PYLORI IGG NEGATIVE (NEGATIVE)
[2018-02-10 04:56] LABS: INR 1.62 (0.85-1.17); PROTIME 18.7 SECONDS (11.6-15.0)
[2018-02-10 05:03] LABS: ALBUMIN 1.4 g/dL (3.4-5.0); ALKALINE PHOSPHATASE 49 U/L (46-116); BILIRUBIN - TOTAL 1.93 mg/dL (0.2-1.3); CALC OSMOLALITY 271 mosm/kg (275-300); CALCIUM 7.3 mg/dL (8.5-10.1); CARBON DIOXIDE 24.4 mmol/L (21.0-32.0); CHLORIDE - SERUM 105 mmol/L (98-107); CREATININE - SERUM 0.5 mg/dL (0.6-1.3); GLUCOSE 103 mg/dL (74-106); MAGNESIUM - SERUM 1.4 mg/dL (1.8-2.4); PHOSPHOROUS 2.6 mg/dL (2.5-4.9); POTASSIUM - SERUM 3.6 mmol/L (3.5-5.1); SODIUM 137 mmol/L (136-145); UREA NITROGEN 8 mg/dL (7-18); eGFR NON AFRICAN AMERICAN > 90 mL/min (90-120)
[2018-02-10 05:08] LABS: ALT (SGPT) 78 U/L (10-68)
[2018-02-10 10:43] LABS: HEMATOCRIT 31.4 % (36.0-48.0); HEMOGLOBIN 10.7 g/dL (12-16)
[2018-02-10 16:09] LABS: HEMATOCRIT 31.3 % (36.0-48.0); HEMOGLOBIN 10.7 g/dL (12-16)
[2018-02-11] VITALS (24 sets, daily range): BP systolic 82–106; BP diastolic 54–71; Ht 170.2 cm; Wt 96.7 kg
[2018-02-11 05:26] LABS: BASOPHILS 0.5 % (0-2); EOSINOPHILS 1.2 % (0-7); HEMATOCRIT 29.4 % (36.0-48.0); IMMATURE GRANULOCYTES 0.2 % (0-5); LYMPHOCYTES 15.4 % (15-50); MCH 30.7 pg (26.0-34.0); MCV 90.2 fL (80.0-100.0); MEAN PLATELET VOLUME 9.5 fL (7.4-10.4); MONOCYTES 8.2 % (2-11); NEUTROPHILS 74.5 % (40-80); RBC 3.26 10x6/uL (4.00-5.40); RDW 19.3 % (11.5-14.5); WBC 4.3 10x3/uL (4.8-10.8)
[2018-02-11 05:37] LABS: INR 1.91 (0.85-1.17); PROTIME 21.3 SECONDS (11.6-15.0)
[2018-02-11 05:47] LABS: ALBUMIN 1.6 g/dL (3.4-5.0); ALKALINE PHOSPHATASE 42 U/L (46-116); ALT (SGPT) 76 U/L (10-68); BILIRUBIN - TOTAL 2.09 mg/dL (0.2-1.3); CALC OSMOLALITY 274 mosm/kg (275-300); CALCIUM 7.2 mg/dL (8.5-10.1); CARBON DIOXIDE 23.1 mmol/L (21.0-32.0); CHLORIDE - SERUM 108 mmol/L (98-107); CREATININE - SERUM 0.5 mg/dL (0.6-1.3); GLUCOSE 125 mg/dL (74-106); MAGNESIUM - SERUM 1.7 mg/dL (1.8-2.4); PHOSPHOROUS 2.5 mg/dL (2.5-4.9); PLATELET COUNT 58 10x3/uL (130-400); POTASSIUM - SERUM 3.4 mmol/L (3.5-5.1); PROTEIN - SERUM 4.6 g/dL (6.4-8.2); SODIUM 138 mmol/L (136-145); UREA NITROGEN 8 mg/dL (7-18); eGFR NON AFRICAN AMERICAN > 90 mL/min (90-120)
[2018-02-11 16:13] LABS: HEMATOCRIT 27.4 % (36.0-48.0); HEMOGLOBIN 9.3 g/dL (12-16)
[2018-02-12] VITALS (23 sets, daily range): BP systolic 91–108; BP diastolic 63–77
[2018-02-12 05:36] LABS: BASOPHILS 0.2 % (0-2); EOSINOPHILS 1.3 % (0-7); HEMATOCRIT 29.5 % (36.0-48.0); HEMOGLOBIN 9.9 g/dL (12-16); IMMATURE GRANULOCYTES 0.9 % (0-5); LYMPHOCYTES 18.8 % (15-50); MCH 30.6 pg (26.0-34.0); MCHC 33.6 g/dL (31.0-37.0); MEAN PLATELET VOLUME 10.3 fL (7.4-10.4); MONOCYTES 8.2 % (2-11); NEUTROPHILS 70.6 % (40-80); RBC 3.24 10x6/uL (4.00-5.40); RDW 19.6 % (11.5-14.5); WBC 4.5 10x3/uL (4.8-10.8)
[2018-02-12 05:41] LABS: INR 1.63 (0.85-1.17); PROTIME 18.8 SECONDS (11.6-15.0)
[2018-02-12 05:47] LABS: ALKALINE PHOSPHATASE 47 U/L (46-116); ALT (SGPT) 52 U/L (10-68); BILIRUBIN - TOTAL 2.23 mg/dL (0.2-1.3); CALC OSMOLALITY 276 mosm/kg (275-300); CALCIUM 7.6 mg/dL (8.5-10.1); CARBON DIOXIDE 24.2 mmol/L (21.0-32.0); CHLORIDE - SERUM 110 mmol/L (98-107); CREATININE - SERUM 0.4 mg/dL (0.6-1.3); GLUCOSE 106 mg/dL (74-106); POTASSIUM - SERUM 3.8 mmol/L (3.5-5.1); PROTEIN - SERUM 5.1 g/dL (6.4-8.2); SODIUM 140 mmol/L (136-145); UREA NITROGEN 6 mg/dL (7-18); eGFR NON AFRICAN AMERICAN > 90 mL/min (90-120)
[2018-02-12 06:44] LABS: PLATELET COUNT 45 10x3/uL (130-400)
[2018-02-12 09:17] LABS: HEPATITIS C ANTIBODY >11.0 S/CO RAT (0.0-0.9)
[2018-02-12 17:48] LABS: HEMATOCRIT 30.8 % (36.0-48.0); HEMOGLOBIN 10.2 g/dL (12-16)
[2018-02-13] VITALS (24 sets, daily range): BP systolic 90–108; BP diastolic 57–86
[2018-02-13 04:55] LABS: BASOPHILS 0.2 % (0-2); EOSINOPHILS 0.7 % (0-7); HEMATOCRIT 30.4 % (36.0-48.0); HEMOGLOBIN 10.1 g/dL (12-16); IMMATURE GRANULOCYTES 1.1 % (0-5); LYMPHOCYTES 16.9 % (15-50); MCH 30.3 pg (26.0-34.0); MCHC 33.2 g/dL (31.0-37.0); MCV 91.3 fL (80.0-100.0); MEAN PLATELET VOLUME 10.3 fL (7.4-10.4); MONOCYTES 10.2 % (2-11); NEUTROPHILS 70.9 % (40-80); RBC 3.33 10x6/uL (4.00-5.40); RDW 19.6 % (11.5-14.5); WBC 5.4 10x3/uL (4.8-10.8)
[2018-02-13 05:16] LABS: PLATELET COUNT 83 10x3/uL (130-400)
[2018-02-13 05:18] LABS: INR 1.6 (0.85-1.17); PROTIME 18.5 SECONDS (11.6-15.0)
[2018-02-13 05:35] LABS: ALKALINE PHOSPHATASE 46 U/L (46-116); BILIRUBIN - INDIRECT 0.84 mg/dL (0.00-1.00); BILIRUBIN - TOTAL 2.34 mg/dL (0.2-1.3); CALC OSMOLALITY 279 mosm/kg (275-300); CALCIUM 7.8 mg/dL (8.5-10.1); CARBON DIOXIDE 23.4 mmol/L (21.0-32.0); CHLORIDE - SERUM 110 mmol/L (98-107); CREATININE - SERUM 0.3 mg/dL (0.6-1.3); GLUCOSE 112 mg/dL (74-106); POTASSIUM - SERUM 3.8 mmol/L (3.5-5.1); SODIUM 141 mmol/L (136-145); UREA NITROGEN 6 mg/dL (7-18); eGFR NON AFRICAN AMERICAN > 90 mL/min (90-120)
[2018-02-13 05:36] LABS: ALT (SGPT) 33 U/L (10-68)
[2018-02-13 17:58] LABS: HEMATOCRIT 30.6 % (36.0-48.0); HEMOGLOBIN 10.3 g/dL (12-16)
[2018-02-14] VITALS (24 sets, daily range): BP systolic 83–104; BP diastolic 53–76
[2018-02-14 05:02] LABS: BASOPHILS 0.4 % (0-2); EOSINOPHILS 0.9 % (0-7); HEMATOCRIT 28.5 % (36.0-48.0); HEMOGLOBIN 9.6 g/dL (12-16); IMMATURE GRANULOCYTES 0.9 % (0-5); LYMPHOCYTES 18.7 % (15-50); MCH 30.7 pg (26.0-34.0); MCHC 33.7 g/dL (31.0-37.0); MCV 91.1 fL (80.0-100.0); MEAN PLATELET VOLUME 10.4 fL (7.4-10.4); NEUTROPHILS 68.1 % (40-80); RBC 3.13 10x6/uL (4.00-5.40); RDW 20.1 % (11.5-14.5); WBC 5.5 10x3/uL (4.8-10.8)
[2018-02-14 05:28] LABS: INR 1.47 (0.85-1.17); PROTIME 17.5 SECONDS (11.6-15.0)
[2018-02-14 05:39] LABS: ALBUMIN 2.5 g/dL (3.4-5.0); ALKALINE PHOSPHATASE 50 U/L (46-116); ALT (SGPT) 28 U/L (10-68); BILIRUBIN - DIRECT 1.69 mg/dL (0.00-0.30); BILIRUBIN - INDIRECT 1.02 mg/dL (0.00-1.00); BILIRUBIN - TOTAL 2.71 mg/dL (0.2-1.3); CALC OSMOLALITY 275 mosm/kg (275-300); CALCIUM 8.3 mg/dL (8.5-10.1); CARBON DIOXIDE 24.5 mmol/L (21.0-32.0); CHLORIDE - SERUM 108 mmol/L (98-107); CREATININE - SERUM 0.3 mg/dL (0.6-1.3); GLUCOSE 98 mg/dL (74-106); POTASSIUM - SERUM 3.7 mmol/L (3.5-5.1); PROTEIN - SERUM 5.3 g/dL (6.4-8.2); SODIUM 139 mmol/L (136-145); UREA NITROGEN 6 mg/dL (7-18); eGFR NON AFRICAN AMERICAN > 90 mL/min (90-120)
[2018-02-14 06:05] LABS: PLATELET COUNT 66 10x3/uL (130-400)
[2018-02-14 07:57] LABS: PLATELET ESTIMATE DECREASED
[2018-02-14 17:57] LABS: HEMATOCRIT 22.4 % (36.0-48.0); HEMOGLOBIN 7.5 g/dL (12-16)
[2018-02-15] VITALS (25 sets, daily range): BP systolic 91–113; BP diastolic 61–79
[2018-02-15 06:28] LABS: BASOPHILS 0.6 % (0-2); EOSINOPHILS 0.8 % (0-7); IMMATURE GRANULOCYTES 0.6 % (0-5); LYMPHOCYTES 18.8 % (15-50); MCH 29.8 pg (26.0-34.0); MCHC 33.2 g/dL (31.0-37.0); MCV 89.8 fL (80.0-100.0); MEAN PLATELET VOLUME 10.6 fL (7.4-10.4); MONOCYTES 12.7 % (2-11); NEUTROPHILS 66.5 % (40-80); PLATELET COUNT 79 10x3/uL (130-400); RBC 3.52 10x6/uL (4.00-5.40); RDW 18.9 % (11.5-14.5); WBC 5.2 10x3/uL (4.8-10.8)
[2018-02-15 06:29] LABS: HEMATOCRIT 31.6 % (36.0-48.0); HEMOGLOBIN 10.5 g/dL (12-16)
[2018-02-15 06:43] LABS: ALBUMIN 2.6 g/dL (3.4-5.0); ALKALINE PHOSPHATASE 57 U/L (46-116); ALT (SGPT) 21 U/L (10-68); BILIRUBIN - TOTAL 2.93 mg/dL (0.2-1.3); CALC OSMOLALITY 271 mosm/kg (275-300); CALCIUM 8.7 mg/dL (8.5-10.1); CARBON DIOXIDE 22.2 mmol/L (21.0-32.0); CHLORIDE - SERUM 107 mmol/L (98-107); GLUCOSE 104 mg/dL (74-106); POTASSIUM - SERUM 3.5 mmol/L (3.5-5.1); PROTEIN - SERUM 5.8 g/dL (6.4-8.2); SODIUM 137 mmol/L (136-145); UREA NITROGEN 7 mg/dL (7-18)
[2018-02-15 06:46] LABS: CREATININE - SERUM 0.4 mg/dL (0.6-1.3); eGFR NON AFRICAN AMERICAN > 90 mL/min (90-120)
[2018-02-15 16:02] LABS: HEMATOCRIT 32.9 % (36.0-48.0)
[2018-02-16] VITALS (25 sets, daily range): BP systolic 91–115; BP diastolic 57–88
[2018-02-16 05:42] LABS: BASOPHILS 0.8 % (0-2); EOSINOPHILS 0.9 % (0-7); HEMATOCRIT 33.3 % (36.0-48.0); HEMOGLOBIN 11.2 g/dL (12-16); IMMATURE GRANULOCYTES 0.6 % (0-5); MCH 30.2 pg (26.0-34.0); MCHC 33.6 g/dL (31.0-37.0); MCV 89.8 fL (80.0-100.0); MEAN PLATELET VOLUME 10.9 fL (7.4-10.4); MONOCYTES 11.8 % (2-11); NEUTROPHILS 59.9 % (40-80); PLATELET COUNT 69 10x3/uL (130-400); RBC 3.71 10x6/uL (4.00-5.40); RDW 20.1 % (11.5-14.5); WBC 5.3 10x3/uL (4.8-10.8)
[2018-02-16 05:53] LABS: INR 1.43 (0.85-1.17); PROTIME 17.1 SECONDS (11.6-15.0)
[2018-02-16 05:57] LABS: CALC OSMOLALITY 276 mosm/kg (275-300); CALCIUM 8.6 mg/dL (8.5-10.1); CARBON DIOXIDE 24.3 mmol/L (21.0-32.0); CHLORIDE - SERUM 109 mmol/L (98-107); CREATININE - SERUM 0.5 mg/dL (0.6-1.3); GLUCOSE 110 mg/dL (74-106); POTASSIUM - SERUM 3.5 mmol/L (3.5-5.1); SODIUM 139 mmol/L (136-145); UREA NITROGEN 8 mg/dL (7-18); eGFR NON AFRICAN AMERICAN > 90 mL/min (90-120)
[2018-02-16 15:48] LABS: HEMATOCRIT 34.2 % (36.0-48.0); HEMOGLOBIN 11.5 g/dL (12-16)
[2018-02-17] VITALS (25 sets, daily range): BP systolic 92–133; BP diastolic 59–97
[2018-02-17 05:46] LABS: BASOPHILS 0.6 % (0-2); EOSINOPHILS 0.8 % (0-7); HEMATOCRIT 32.1 % (36.0-48.0); HEMOGLOBIN 10.8 g/dL (12-16); IMMATURE GRANULOCYTES 0.4 % (0-5); MCH 30.1 pg (26.0-34.0); MCHC 33.6 g/dL (31.0-37.0); MCV 89.4 fL (80.0-100.0); MEAN PLATELET VOLUME 10.6 fL (7.4-10.4); MONOCYTES 15.2 % (2-11); PLATELET COUNT 62 10x3/uL (130-400); RBC 3.59 10x6/uL (4.00-5.40); RDW 20.2 % (11.5-14.5); WBC 5.3 10x3/uL (4.8-10.8)
[2018-02-17 06:03] LABS: ALBUMIN 2.6 g/dL (3.4-5.0); ALKALINE PHOSPHATASE 107 U/L (46-116); ALT (SGPT) 21 U/L (10-68); BILIRUBIN - TOTAL 2.99 mg/dL (0.2-1.3); CALC OSMOLALITY 276 mosm/kg (275-300); CALCIUM 8.8 mg/dL (8.5-10.1); CARBON DIOXIDE 26.8 mmol/L (21.0-32.0); CHLORIDE - SERUM 109 mmol/L (98-107); CREATININE - SERUM 0.4 mg/dL (0.6-1.3); GLUCOSE 104 mg/dL (74-106); POTASSIUM - SERUM 3.5 mmol/L (3.5-5.1); PROTEIN - SERUM 5.8 g/dL (6.4-8.2); SODIUM 140 mmol/L (136-145); UREA NITROGEN 8 mg/dL (7-18); eGFR NON AFRICAN AMERICAN > 90 mL/min (90-120)
[2018-02-17 18:55] LABS: HEMATOCRIT 32.3 % (36.0-48.0); HEMOGLOBIN 10.9 g/dL (12-16)
[2018-02-18] VITALS (24 sets, daily range): BP systolic 107–141; BP diastolic 71–89
[2018-02-18 04:38] LABS: BASOPHILS 0.4 % (0-2); EOSINOPHILS 1.3 % (0-7); HEMATOCRIT 33.1 % (36.0-48.0); IMMATURE GRANULOCYTES 0.4 % (0-5); LYMPHOCYTES 32.9 % (15-50); MCHC 33.2 g/dL (31.0-37.0); MCV 90.2 fL (80.0-100.0); MEAN PLATELET VOLUME 9.6 fL (7.4-10.4); MONOCYTES 15.4 % (2-11); NEUTROPHILS 49.6 % (40-80); RBC 3.67 10x6/uL (4.00-5.40); RDW 20.5 % (11.5-14.5); WBC 5.5 10x3/uL (4.8-10.8)
[2018-02-18 04:42] LABS: PLATELET COUNT 49 10x3/uL (130-400)
[2018-02-18 04:46] LABS: INR 1.61 (0.85-1.17); PROTIME 18.8 SECONDS (11.6-15.0)
[2018-02-18 05:39] LABS: ALBUMIN 2.8 g/dL (3.4-5.0); ALKALINE PHOSPHATASE 109 U/L (46-116); ALT (SGPT) 22 U/L (10-68); BILIRUBIN - TOTAL 3.44 mg/dL (0.2-1.3); CALC OSMOLALITY 277 mosm/kg (275-300); CALCIUM 8.8 mg/dL (8.5-10.1); CARBON DIOXIDE 28.5 mmol/L (21.0-32.0); CHLORIDE - SERUM 106 mmol/L (98-107); CREATININE - SERUM 0.5 mg/dL (0.6-1.3); GLUCOSE 109 mg/dL (74-106); POTASSIUM - SERUM 3.1 mmol/L (3.5-5.1); PROTEIN - SERUM 6.1 g/dL (6.4-8.2); SODIUM 140 mmol/L (136-145); UREA NITROGEN 8 mg/dL (7-18); eGFR NON AFRICAN AMERICAN > 90 mL/min (90-120)
[2018-02-19] VITALS (24 sets, daily range): BP systolic 118–139; BP diastolic 64–98
[2018-02-19 05:28] LABS: BASOPHILS 0.5 % (0-2); EOSINOPHILS 1.1 % (0-7); HEMATOCRIT 32.8 % (36.0-48.0); HEMOGLOBIN 11.2 g/dL (12-16); IMMATURE GRANULOCYTES 0.5 % (0-5); LYMPHOCYTES 39.4 % (15-50); MCH 30.6 pg (26.0-34.0); MCHC 34.1 g/dL (31.0-37.0); MCV 89.6 fL (80.0-100.0); MEAN PLATELET VOLUME 10.6 fL (7.4-10.4); MONOCYTES 12.9 % (2-11); NEUTROPHILS 45.6 % (40-80); RBC 3.66 10x6/uL (4.00-5.40); RDW 20.9 % (11.5-14.5); WBC 5.7 10x3/uL (4.8-10.8)
[2018-02-19 05:46] LABS: INR 1.68 (0.85-1.17); PROTIME 19.5 SECONDS (11.6-15.0)
[2018-02-19 05:55] LABS: ALKALINE PHOSPHATASE 137 U/L (46-116); ALT (SGPT) 27 U/L (10-68); BILIRUBIN - TOTAL 3.74 mg/dL (0.2-1.3); CALC OSMOLALITY 280 mosm/kg (275-300); CARBON DIOXIDE 29.1 mmol/L (21.0-32.0); CHLORIDE - SERUM 104 mmol/L (98-107); CREATININE - SERUM 0.4 mg/dL (0.6-1.3); GLUCOSE 127 mg/dL (74-106); MAGNESIUM - SERUM 1.2 mg/dL (1.8-2.4); PHOSPHOROUS 2.8 mg/dL (2.5-4.9); PROTEIN - SERUM 6.3 g/dL (6.4-8.2); SODIUM 141 mmol/L (136-145); UREA NITROGEN 8 mg/dL (7-18); eGFR NON AFRICAN AMERICAN > 90 mL/min (90-120)
[2018-02-19 06:18] LABS: POTASSIUM - SERUM 2.8 mmol/L (3.5-5.1)
[2018-02-19 06:35] LABS: PLATELET COUNT 44 10x3/uL (130-400)
[2018-02-20] VITALS (17 sets, daily range): BP systolic 128–160; BP diastolic 69–91
[2018-02-20 06:38] LABS: INR 1.82 (0.85-1.17); PROTIME 20.8 SECONDS (11.6-15.0)
[2018-02-20 06:40] LABS: ALBUMIN 3.2 g/dL (3.4-5.0); ALKALINE PHOSPHATASE 149 U/L (46-116); BILIRUBIN - TOTAL 3.64 mg/dL (0.2-1.3); CALC OSMOLALITY 284 mosm/kg (275-300); CARBON DIOXIDE 31.7 mmol/L (21.0-32.0); CHLORIDE - SERUM 105 mmol/L (98-107); GLUCOSE 150 mg/dL (74-106); MAGNESIUM - SERUM 1.5 mg/dL (1.8-2.4); PHOSPHOROUS 2.7 mg/dL (2.5-4.9); PROTEIN - SERUM 6.7 g/dL (6.4-8.2); SODIUM 142 mmol/L (136-145); UREA NITROGEN 10 mg/dL (7-18)
[2018-02-20 06:52] LABS: BASOPHILS 0.6 % (0-2); EOSINOPHILS 0.9 % (0-7); HEMOGLOBIN 10.7 g/dL (12-16); IMMATURE GRANULOCYTES 0.5 % (0-5); LYMPHOCYTES 41.7 % (15-50); MCH 30.3 pg (26.0-34.0); MCHC 33.4 g/dL (31.0-37.0); MCV 90.7 fL (80.0-100.0); MONOCYTES 11.4 % (2-11); NEUTROPHILS 44.9 % (40-80); RBC 3.53 10x6/uL (4.00-5.40); RDW 21.5 % (11.5-14.5); WBC 6.4 10x3/uL (4.8-10.8)
[2018-02-20 07:00] LABS: PLATELET COUNT 40 10x3/uL (130-400)
[2018-02-20 07:02] LABS: ALT (SGPT) 34 U/L (10-68); CREATININE - SERUM 0.6 mg/dL (0.6-1.3); eGFR NON AFRICAN AMERICAN > 90 mL/min (90-120)
[2018-02-20 07:06] LABS: POTASSIUM - SERUM 2.8 mmol/L (3.5-5.1)
[2018-02-20 19:59] LABS: HEMATOCRIT 31.5 % (36.0-48.0); HEMOGLOBIN 10.6 g/dL (12-16)
[2018-02-21] VITALS: BP 146/86
[2018-02-21 04:00] VITALS: BP 147/88
[2018-02-21 06:23] LABS: BASOPHILS 0.5 % (0-2); EOSINOPHILS 1.2 % (0-7); HEMATOCRIT 30.4 % (36.0-48.0); HEMOGLOBIN 10.1 g/dL (12-16); IMMATURE GRANULOCYTES 0.5 % (0-5); LYMPHOCYTES 36.9 % (15-50); MCH 30.6 pg (26.0-34.0); MCHC 33.2 g/dL (31.0-37.0); MCV 92.1 fL (80.0-100.0); MONOCYTES 11.1 % (2-11); NEUTROPHILS 49.8 % (40-80)
[2018-02-21 06:26] LABS: PLATELET COUNT 38 10x3/uL (130-400)
[2018-02-21 06:42] LABS: ALBUMIN 3.2 g/dL (3.4-5.0); ALKALINE PHOSPHATASE 153 U/L (46-116); ALT (SGPT) 31 U/L (10-68); BILIRUBIN - TOTAL 3.57 mg/dL (0.2-1.3); CALC OSMOLALITY 290 mosm/kg (275-300); CARBON DIOXIDE 31.2 mmol/L (21.0-32.0); CHLORIDE - SERUM 104 mmol/L (98-107); CREATININE - SERUM 0.6 mg/dL (0.6-1.3); GLUCOSE 165 mg/dL (74-106); PROTEIN - SERUM 7.1 g/dL (6.4-8.2); SODIUM 144 mmol/L (136-145); UREA NITROGEN 12 mg/dL (7-18); eGFR NON AFRICAN AMERICAN > 90 mL/min (90-120)
[2018-02-21 15:52] LABS: HEMATOCRIT 29.2 % (36.0-48.0); HEMOGLOBIN 9.7 g/dL (12-16)
[2018-02-21 20:00] VITALS: BP 133/76
[2018-02-22] VITALS: BP 131/77
[2018-02-22 04:00] VITALS: BP 128/80
[2018-02-22 05:53] LABS: INR 2.17 (0.85-1.17); PROTIME 23.5 SECONDS (11.6-15.0)
[2018-02-22 05:58] LABS: CALC OSMOLALITY 290 mosm/kg (275-300); CARBON DIOXIDE 33.5 mmol/L (21.0-32.0); CHLORIDE - SERUM 107 mmol/L (98-107); CREATININE - SERUM 0.6 mg/dL (0.6-1.3); GLUCOSE 136 mg/dL (74-106); SODIUM 145 mmol/L (136-145); UREA NITROGEN 13 mg/dL (7-18); eGFR NON AFRICAN AMERICAN > 90 mL/min (90-120)
[2018-02-22 06:01] LABS: BASOPHILS 0.5 % (0-2); EOSINOPHILS 1.2 % (0-7); HEMATOCRIT 29.5 % (36.0-48.0); HEMOGLOBIN 9.7 g/dL (12-16); IMMATURE GRANULOCYTES 0.3 % (0-5); LYMPHOCYTES 32.7 % (15-50); MCH 30.5 pg (26.0-34.0); MCHC 32.9 g/dL (31.0-37.0); MCV 92.8 fL (80.0-100.0); MONOCYTES 9.4 % (2-11); NEUTROPHILS 55.9 % (40-80); RBC 3.18 10x6/uL (4.00-5.40); RDW 22.4 % (11.5-14.5)
[2018-02-22 06:08] LABS: PLATELET COUNT 34 10x3/uL (130-400)
[2018-02-22 09:00] VITALS: BP 135/76
[2018-02-22 12:30] VITALS: BP 128/83
[2018-02-22 16:27] VITALS: BP 136/76
[2018-02-22 20:02] VITALS: BP 120/73
[2018-02-23 00:24] VITALS: BP 130/76
[2018-02-23 04:56] VITALS: BP 137/85
[2018-02-23 05:38] LABS: BASOPHILS 0.4 % (0-2); EOSINOPHILS 1.5 % (0-7); HEMATOCRIT 30.2 % (36.0-48.0); HEMOGLOBIN 9.8 g/dL (12-16); IMMATURE GRANULOCYTES 0.3 % (0-5); LYMPHOCYTES 27.7 % (15-50); MCH 30.4 pg (26.0-34.0); MCHC 32.5 g/dL (31.0-37.0); MCV 93.8 fL (80.0-100.0); MONOCYTES 8.1 % (2-11); RBC 3.22 10x6/uL (4.00-5.40); RDW 22.8 % (11.5-14.5); WBC 6.8 10x3/uL (4.8-10.8)
[2018-02-23 05:54] LABS: PLATELET COUNT 48 10x3/uL (130-400)
[2018-02-23 06:01] LABS: ALBUMIN 3.1 g/dL (3.4-5.0); ALKALINE PHOSPHATASE 110 U/L (46-116); ALT (SGPT) 29 U/L (10-68); BILIRUBIN - DIRECT 1.92 mg/dL (0.00-0.30); BILIRUBIN - INDIRECT 2.35 mg/dL (0.00-1.00); BILIRUBIN - TOTAL 4.27 mg/dL (0.2-1.3); CALC OSMOLALITY 291 mosm/kg (275-300); CALCIUM 9.1 mg/dL (8.5-10.1); CARBON DIOXIDE 30.6 mmol/L (21.0-32.0); CHLORIDE - SERUM 107 mmol/L (98-107); CREATININE - SERUM 0.7 mg/dL (0.6-1.3); GLUCOSE 145 mg/dL (74-106); POTASSIUM - SERUM 3.5 mmol/L (3.5-5.1); PROTEIN - SERUM 7.3 g/dL (6.4-8.2); SODIUM 145 mmol/L (136-145); UREA NITROGEN 12 mg/dL (7-18); eGFR NON AFRICAN AMERICAN 88 mL/min (90-120)
[2018-02-23 08:04] LABS: INR 1.98 (0.85-1.17); PROTIME 21.8 SECONDS (11.6-15.0)
[2018-02-23 09:10] VITALS: BP 123/70
[2018-02-23 12:13] VITALS: BP 120/72
[2018-02-23 14:44] VITALS: BP 148/80
[2018-02-23 20:47] VITALS: BP 138/83
[2018-02-24 01:03] VITALS: BP 116/67
[2018-02-24 05:20] LABS: ANION GAP 9.9 mmol/L (8-16); CALCIUM 9.9 mg/dL (8.5-10.1); CARBON DIOXIDE 33.6 mmol/L (21.0-32.0); POTASSIUM - SERUM 3.5 mmol/L (3.5-5.1)
[2018-02-24 05:29] LABS: CREATININE - SERUM 0.9 mg/dL (0.6-1.3)
[2018-02-24 05:33] LABS: BASOPHILS 0.4 % (0-2); EOSINOPHILS 1.3 % (0-7); HEMATOCRIT 31.5 % (36.0-48.0); HEMOGLOBIN 10.2 g/dL (12-16); IMMATURE GRANULOCYTES 0.2 % (0-5); LYMPHOCYTES 21.4 % (15-50); MCH 30.9 pg (26.0-34.0); MCHC 32.4 g/dL (31.0-37.0); MCV 95.5 fL (80.0-100.0); MEAN PLATELET VOLUME 11.4 fL (7.4-10.4); NEUTROPHILS 71.7 % (40-80); PLATELET COUNT 126 10x3/uL (130-400); RDW 23.4 % (11.5-14.5); WBC 8.4 10x3/uL (4.8-10.8)
== END 2018-02-24 09:16 | DRG 405 ==
LOC: D.ICU 15:53 → D.MS 22:19
PROVIDERS: Emergency Medicine; General Practice; Internal Medicine Gastroenterology; Internal Medicine Nephrology; Internal Medicine Pulmonary Disease
PROC: 0W3P8ZZ Control Bleeding in Gastrointestinal Tract, Via Natural or Artificial Opening Endoscopic (ICD-10-PCS; 2018-02-08)
PROC: 05HM33Z Insertion of Infusion Device into Right Internal Jugular Vein, Percutaneous Approach (ICD-10-PCS; 2018-02-08)
PROC: 0W9G3ZZ Drainage of Peritoneal Cavity, Percutaneous Approach (ICD-10-PCS; 2018-02-08)
PROC: 06183J4 Bypass Portal Vein to Hepatic Vein with Synthetic Substitute, Percutaneous Approach (ICD-10-PCS; principal; 2018-02-08 06:25)
PROC: 5A1955Z Respiratory Ventilation, Greater than 96 Consecutive Hours (ICD-10-PCS; 2018-02-08 09:30)
PROC: 0BH17EZ Insertion of Endotracheal Airway into Trachea, Via Natural or Artificial Opening (ICD-10-PCS; 2018-02-08 09:30)
DX: K74.69 Other cirrhosis of liver (principal); K25.4 Chronic or unspecified gastric ulcer with hemorrhage; I85.11 Secondary esophageal varices with bleeding; J96.00 Acute respiratory failure, unspecified whether with hypoxia or hypercapnia; J69.0 Pneumonitis due to inhalation of food and vomit; J44.1 Chronic obstructive pulmonary disease with (acute) exacerbation; D68.9 Coagulation defect, unspecified; D62 Acute posthemorrhagic anemia; E87.1 Hypo-osmolality and hyponatremia; K76.6 Portal hypertension; R18.8 Other ascites; J98.11 Atelectasis; F10.10 Alcohol abuse, uncomplicated; I10 Essential (primary) hypertension; F17.200 Nicotine dependence, unspecified, uncomplicated; E11.40 Type 2 diabetes mellitus with diabetic neuropathy, unspecified; K72.90 Hepatic failure, unspecified without coma; B19.20 Unspecified viral hepatitis C without hepatic coma; I95.9 Hypotension, unspecified; E87.6 Hypokalemia; Z66 Do not resuscitate